=== PATIENT | male | born 1955 | race Caucasian/White ===

== ENCOUNTER 2021-10-12 07:26 | Outpatient (CLI) | payer BC | END 2021-10-12 07:27 | disposition home or self-care (01) | LOC: CSHULT 07:26 | PROVIDERS: ATTEND Family Medicine | DX: I82.441 Acute embolism and thrombosis of right tibial vein (principal) ==

== ENCOUNTER 2021-10-26 07:35 | Outpatient (CLI) | payer BC | END 2021-10-26 07:36 | disposition home or self-care (01) | LOC: CSHCT 07:35 | PROVIDERS: ATTEND Family Medicine | DX: K66.1 Hemoperitoneum (principal); K40.20 Bilateral inguinal hernia, without obstruction or gangrene, not specified as recurrent; J98.4 Other disorders of lung; N20.0 Calculus of kidney | CPT/HCPCS: 74177 ==